=== PATIENT | male | born 1975 | race Caucasian/White ===

== ENCOUNTER → 2018-02-24 | Outpatient (REF) | payer OTHER ==
[2018-02-24 14:13] LABS: BLOOD UREA NITROGEN 18 MG/DL (7-18)
[2018-02-24 14:13] LABS: CREATININE FOR GFR 0.98 MG/DL (0.70-1.30); GLOMERULAR FILTRATION RATE > 60.0 (>60)
== END ==
LOC: M LABNEURO 08:12
DX: N18.9 Chronic kidney disease, unspecified (principal)
CPT/HCPCS: 82565